=== PATIENT | female | born 1945 | race Caucasian/White ===

== ENCOUNTER 2016-08-22 08:35 | Day surgery (SDC) | payer MEDICARE, OTHER ==
[2016-08-22] MEDS ORDERED: LACTATED RINGERS 1,000 ML IV ONE ×2 (08:42→12:30)
[2016-08-22] MEDS ORDERED: fentaNYL 250 MCG/5 ML VIAL IVP ONE (09:50)
[2016-08-22] MEDS ORDERED: MIDAZOLAM 2 MG/2 ML VIAL IVP ONE (09:50)
[2016-08-22] MEDS ORDERED: ONDANSETRON 4 MG/2 ML VIAL ONE ×2 (11:02→11:33)
[2016-08-22] MEDS: METOCLOPRAMIDE 10 MG/2 ML VIAL IVP ONE ×2 (11:55→12:14)
== END 2016-08-22 08:36 | disposition home or self-care (01) ==
PROC: 0DJD8ZZ Inspection of Lower Intestinal Tract, Via Natural or Artificial Opening Endoscopic (ICD-10-PCS; principal; 2016-08-22 09:45)
DX: Z86.010 Personal history of colon polyps (principal); K59.00 Constipation, unspecified; K64.4 Residual hemorrhoidal skin tags; Z80.0 Family history of malignant neoplasm of digestive organs; E66.9 Obesity, unspecified; Z80.3 Family history of malignant neoplasm of breast; Z68.36 Body mass index [BMI] 36.0-36.9, adult
CPT/HCPCS: 45378; J3010; J7120

== ENCOUNTER 2016-12-09 10:19 | Outpatient (CLI) | payer MEDICARE, OTHER ==
[2016-12-09 13:14] LABS: CHOL/HDL RATIO 3.1 (<4.4); CHOLESTEROL 199 mg/dL; HDL CHOLESTEROL 64 mg/dL; LDL/HDL RATIO 1.8 (<4.4); TRIGLYCERIDES 111 mg/dL; VLDL CHOLESTEROL 22 mg/dL
== END 2016-12-09 10:20 | disposition home or self-care (01) ==
LOC: LAB.R 10:19
PROVIDERS: ATTEND Internal Medicine
DX: E78.2 Mixed hyperlipidemia (principal); R55 Syncope and collapse; R30.0 Dysuria
CPT/HCPCS: 80061; 84443; 87086

== ENCOUNTER 2016-12-16 10:44 | Outpatient (CLI) | payer MEDICARE, OTHER ==
--- NOTE | 2016-12-17 17:43 | Mammography Report ---
DIGITAL SCREENING MAMMOGRAM: 12/16/2016 CLINICAL INDICATION: A 71-year-old with family history of breast cancer for screening. COMPARISON: 12/2014, 06/2013, 11/2010, 03/2007. TECHNIQUE: Routine CC and MLO projections were obtained of the breasts. FINDINGS: The breasts again demonstrate heterogeneously dense fibroglandular parenchyma bilaterally. A few punctate, typically benign calcifications are present. There is a possible developing densit y in the left inner central breast. Further evaluation with spot compression views and possible ultr asound is recommended. No mammographically suspicious findings are appreciated in the right breast. IMPRESSION: INCOMPLETE EXAMINATION. RECOMMENDATION: Additional evaluation of the left breast as above. BI-RADS category 0, incomplete. STANDARD QUALIFYING STATEMENTS 1. This examination was reviewed with the aid of Computer-Aided Detection (CAD). 2. A negative or benign imaging report should not delay biopsy if clinically suspicious findings are present. Consider surgical consultation if warranted. More than 5% of cancers are not identified by i maging. 3. Dense breasts may obscure an underlying neoplasm. JOB #: [id number] EXT JOB #:[id number]
== END 2016-12-16 10:45 | disposition home or self-care (01) ==
LOC: DI.S 10:44
PROVIDERS: ATTEND Internal Medicine
DX: Z12.31 Encounter for screening mammogram for malignant neoplasm of breast (principal); R92.8 Other abnormal and inconclusive findings on diagnostic imaging of breast
CPT/HCPCS: 77067

== ENCOUNTER 2017-01-09 08:37 | Outpatient (CLI) | payer MEDICARE, OTHER ==
--- NOTE | 2017-01-09 14:19 | Mammography Report ---
DIGITAL DIAGNOSTIC LEFT MAMMOGRAM: 01/09/2017 CLINICAL INDICATION: Nodule inner left breast on screening. TECHNIQUE: Left true lateral and spot compression views. COMPARISON: 12/16/2016, 12/21/2014, 06/09/2013, 11/09/2010, 03/17/2007. FINDINGS: The left breast again demonstrates heterogeneously dense fibroglandular parenchyma. There is a circumscribed nodule at the 9 o'clock position, approximately 3 cm from the nipple. Please also refer to left breast ultrasound of the same day. IMPRESSION: BENIGN FINDINGS, WITH A SIMPLE CYST ON ULTRASOUND ACCOUNTING FOR THE MAMMOGRAPHIC ABNORM ALITY. RECOMMENDATION: ROUTINE ANNUAL SCREENING UNLESS OTHERWISE CLINICALLY INDICATED. BIRADS CATEGORY 2-BENIGN FINDINGS. STANDARD QUALIFYING STATEMENTS 1. This examination was reviewed with the aid of Computer-Aided Detection (CAD). 2. A negative or benign imaging report should not delay biopsy if clinically suspicious findings are present. Consider surgical consultation if warranted. More than 5% of cancers are not identified by i maging. 3. Dense breasts may obscure an underlying neoplasm. JOB #: [id number] EXT JOB #:[id number]
--- NOTE | 2017-01-10 08:40 | Ultrasound Report ---
ULTRASOUND OF LEFT INNER BREAST: 01/09/2017 CLINICAL INDICATION: Persistent nodule on mammogram. TECHNIQUE: Real-time scanning was performed with technology sales representative static images obtained. FINDINGS: Ultrasound of the inner left breast was performed. At the 9 o'clock position, 3 cm from the nipple, there is an 1.0 x 1.0 x 0.9 cm simple cyst, accounti ng for the mammographic abnormality. No sonographically suspicious findings are identified. IMPRESSION: SIMPLE CYST, ACCOUNTING FOR THE MAMMOGRAPHIC ABNORMALITY. RECOMMENDATION: ROUTINE ANNUAL SCREENING UNLESS OTHERWISE CLINICALLY INDICATED. BIRADS CATEGORY 2-BENIGN FINDINGS. JOB #: [id number] EXT JOB #:[id number]
== END 2017-01-09 08:38 | disposition home or self-care (01) ==
LOC: DI 08:37
PROVIDERS: ATTEND Internal Medicine
DX: N60.02 Solitary cyst of left breast (principal)
CPT/HCPCS: 76642; G0206

== ENCOUNTER 2019-06-08 11:30 | Outpatient (CLI) | payer MEDICARE, OTHER ==
--- NOTE | 2019-06-08 15:01 | Mammography Report ---
Reason: SCREENING MAMMO Procedure Date: 06/08/2019 Accession Number: [id number] / [id number] Procedure: MGS - Screening Mammo Dig Bilat CPT Code: Final Report FULL RESULT: EXAM: Screening Mammo Dig Bilat DATE: 06/08/2019 11:59 AM CLINICAL HISTORY: The patient is an asymptomatic 74-year-old female presenting for screening mammography. No personal nor family history of breast cancer. TECHNIQUE: (B) - Bilateral CC and MLO views were obtained. COMPARISON: 12/21/2014, 06/09/2013, 11/09/2010 PARENCHYMAL PATTERN: (D) - The breasts demonstrate heterogeneously dense fibroglandular parenchyma bilaterally. FINDINGS: The pattern of nodular asymmetry is stable given positional variation. Waxing and waning cysts again noted. There are no suspicious masses, calcifications, or areas of distortion. IMPRESSION: Benign findings. BI-RADS category 2. RECOMMENDATION: (ANNUAL) - Recommend routine annual screening mammography. BI-RADS CATEGORY: (2) - Benign Findings. STANDARD QUALIFYING STATEMENTS: 1. This examination was reviewed with the aid of Computer-Aided Detection (CAD). 2. A negative or benign imaging report should not preclude biopsy if clinically suspicious findings are present. 3. Dense breasts may obscure an underlying neoplasm.
== END 2019-06-08 11:31 | disposition home or self-care (01) ==
LOC: DI.S 11:30
DX: Z12.31 Encounter for screening mammogram for malignant neoplasm of breast (principal)
CPT/HCPCS: 77067

== ENCOUNTER 2019-06-14 16:55 | Outpatient (CLI) | payer MEDICARE, OTHER ==
[2019-06-14 17:26] LABS: BASOPHILS % (AUTO) 0.4 %; EOSINOPHILS # (AUTO) 0.3 10^3/uL (0.0-0.7); EOSINOPHILS % (AUTO) 3.4 %; HGB - HEMOGLOBIN 13.5 g/dL (12.0-16.0); LYMPHOCYTES # (AUTO) 2.3 10^3/uL (1.5-3.5); LYMPHOCYTES % (AUTO) 29.8 %; MEAN CORPUSCULAR HEMOGLOBIN 29.2 pg (27.0-31.0); MEAN CORPUSCULAR HGB CONC 31.7 g/dL (32.0-36.0); MEAN PLATELET VOLUME 9.7 fL (7.9-10.8); MONOCYTES # (AUTO) 0.8 10^3/uL (0.0-1.0); MONOCYTES % (AUTO) 9.6 %; NEUTROPHILS # (AUTO) 4.4 10^3/uL (1.5-6.6); NEUTROPHILS % (AUTO) 56.4 %; PLT - PLATELET COUNT 243 10^3/uL (130-450); RED BLOOD COUNT 4.63 10^6/uL (4.20-5.40); RED CELL DISTRIBUTION WIDTH 13.9 % (12.0-15.0); WHITE BLOOD COUNT 7.9 x10^3/uL (4.8-10.8)
[2019-06-14 18:10] LABS: ALBUMIN/GLOBULIN RATIO 1.2 (1.0-2.2); ALKALINE PHOSPHATASE 61 IU/L (42-121); ALT ALANINE AMINOTRANSFERASE 20 IU/L (10-60); AST ASPARTATE AMINOTRANSFERASE 21 IU/L (10-42); BILIRUBIN,TOTAL 0.9 mg/dL (0.2-1.0); BUN - BLOOD UREA NITROGEN 15 mg/dL (6-20); CARBON DIOXIDE - CO2 27 mmol/L (21-32); CHLORIDE 106 mmol/L (101-111); CHOL/HDL RATIO 3.9 (<4.4); CHOLESTEROL 233 mg/dL; CREATININE 0.8 mg/dL (0.4-1.0); GFR - MDRD 70 (>89); GLUCOSE 100 mg/dL (70-100); HDL CHOLESTEROL 60 mg/dL; LDL CHOLESTEROL,CALCULATED 151 mg/dL; LDL/HDL RATIO 2.5 (<4.4); SODIUM 140 mmol/L (135-145); TOTAL PROTEIN 7.4 g/dL (6.7-8.2); VLDL CHOLESTEROL 22 mg/dL
== END 2019-06-14 16:56 | disposition home or self-care (01) ==
LOC: LAB 16:55
PROVIDERS: ATTEND Nurse Practitioner
DX: K21.9 Gastro-esophageal reflux disease without esophagitis (principal); E78.5 Hyperlipidemia, unspecified; E66.9 Obesity, unspecified
CPT/HCPCS: 36415; 80053; 80061; 83721; 84443; 85025

== ENCOUNTER 2019-06-28 09:47 | Day surgery (SDC) | payer MEDICARE, OTHER ==
[~2019-06-28 09:47] MED LIST: LIDO GARGLE 30 ML BOTTLE ONE; LIDO GARGLE 30 ML BOTTLE PO ONE
[2019-06-28] MEDS ORDERED: MIDAZOLAM 2 MG/2 ML VIAL IVP ONE (09:48)
[2019-06-28] MEDS ORDERED: fentaNYL 100 MCG/2 ML VIAL IVP ONE (09:48)
[2019-06-28] MEDS ORDERED: LACTATED RINGERS 1,000 ML IV ONE (09:51)
[2019-06-28 12:41] VITALS: BP 146/80
== END 2019-06-28 09:48 | disposition home or self-care (01) ==
LOC: SDS 09:47
PROVIDERS: ATTEND Internal Medicine Gastroenterology
PROC: 0D748ZZ Dilation of Esophagogastric Junction, Via Natural or Artificial Opening Endoscopic (ICD-10-PCS; 2019-06-28)
PROC: 0DB48ZX Excision of Esophagogastric Junction, Via Natural or Artificial Opening Endoscopic, Diagnostic (ICD-10-PCS; principal; 2019-06-28 11:00)
DX: K21.0 Gastro-esophageal reflux disease with esophagitis (principal); R13.10 Dysphagia, unspecified; K22.2 Esophageal obstruction; K44.9 Diaphragmatic hernia without obstruction or gangrene; E66.9 Obesity, unspecified; Z68.36 Body mass index [BMI] 36.0-36.9, adult
CPT/HCPCS: 43239; 43249; A9270; J7120

== ENCOUNTER 2020-06-23 08:00 | Outpatient (CLI) | payer MEDICARE, OTHER ==
--- NOTE | 2020-06-23 16:21 | XRAY Report ---
PROCEDURE: Hand 3 View LT INDICATIONS: LEFT HAND JOINT PAIN TECHNIQUE: 3 views of the hand(s) acquired. COMPARISON: None FINDINGS: Bones: No fractures or dislocations. No suspicious bony lesions. Mild first CMC joint and first th rough fifth DIP joint osteoarthritis. No osseous erosive changes. Soft tissues: No suspicious soft tissue calcifications. IMPRESSION: Osteoarthritis. Reviewed by: Lorena Luna MD, PhD on 06/23/2020 4:19 PM [facility] Approved by: Lorena Luna MD, PhD on 06/23/2020 4:19 PM [facility] Station ID: [id number]
== END 2020-06-23 23:59 ==
LOC: DI.S 08:00
PROVIDERS: ATTEND Emergency Medicine
DX: M19.042 Primary osteoarthritis, left hand (principal)

== ENCOUNTER 2020-08-01 08:29 | Outpatient (CLI) | payer MEDICARE, OTHER ==
--- NOTE | 2020-08-01 13:01 | DEXA Report ---
PROCEDURE: Dexa Spine and/or Hip INDICATIONS: POST MENOPAUSAL TECHNIQUE: Dual energy x-ray absorptiometry (DXA) was performed on a [employer] System. Regions measur ed are the AP Spine, femoral neck, and if needed forearm. COMPARISON: None. FINDINGS: Lumbar Spine: Bone Mineral Density 1.087 g/cm/cm,T score -0.8, normal Left Hip: Bone Mineral Density 0.968 g/cm/cm,T score -0.3, normal Left Femoral Neck: Bone Mineral Density 0.843 g/cm/cm, T score -1.4, minimal osteopenia (T score greater or equal to -1.0: NORMAL) (T score from -1.1 to -2.4: OSTEOPENIA) (T score less than or equal to -2.5 to: OSTEOPOROSIS) Impression: Minimal osteopenia in the left femoral neck. Patients with diagnosis of osteoporosis or osteopenia should have regular bone mineral density assess ment. For those eligible for Medicare, routine testing is allowed once every 2 years. Testing frequ ency can be increased for patients who have rapidly progressing disease or for those who are receivin g medical therapy to restore bone mass. Reviewed by: Maya Sarmiento MD on 08/01/2020 1:00 PM PST Approved by: Maya Sarmiento MD on 08/01/2020 1:00 PM PST Station ID: [id number]
== END 2020-08-01 08:30 | disposition home or self-care (01) ==
LOC: DI 08:29
PROVIDERS: ATTEND Registered Nurse
DX: M85.88 Other specified disorders of bone density and structure, other site (principal)

== ENCOUNTER 2021-01-26 09:36 | Outpatient (CLI) | payer MEDICARE, OTHER ==
[2021-01-26 14:53] LABS: BASOPHILS # (AUTO) 0.1 10^3/uL (0.0-0.1); BASOPHILS % (AUTO) 0.6 %; EOSINOPHILS # (AUTO) 0.3 10^3/uL (0.0-0.7); EOSINOPHILS % (AUTO) 3.9 %; HCT - HEMATOCRIT 45.3 % (37.0-47.0); HGB - HEMOGLOBIN 13.9 g/dL (12.0-16.0); LYMPHOCYTES # (AUTO) 2.2 10^3/uL (1.5-3.5); LYMPHOCYTES % (AUTO) 26.8 %; MEAN CORPUSCULAR HEMOGLOBIN 28.4 pg (27.0-31.0); MEAN CORPUSCULAR HGB CONC 30.7 g/dL (32.0-36.0); MEAN CORPUSCULAR VOLUME 92.4 fL (81.0-99.0); MEAN PLATELET VOLUME 11.6 fL (7.9-10.8); MONOCYTES # (AUTO) 0.8 10^3/uL (0.0-1.0); MONOCYTES % (AUTO) 9.6 %; NEUTROPHILS # (AUTO) 4.7 10^3/uL (1.5-6.6); NEUTROPHILS % (AUTO) 58.7 %; PLT - PLATELET COUNT 275 10^3/uL (130-450); RED CELL DISTRIBUTION WIDTH 14.4 % (12.0-15.0)
[2021-01-26 15:13] LABS: ALBUMIN/GLOBULIN RATIO 1.1 (1.0-2.2); ALKALINE PHOSPHATASE 79 IU/L (42-121); ALT ALANINE AMINOTRANSFERASE 21 IU/L (10-60); AST ASPARTATE AMINOTRANSFERASE 21 IU/L (10-42); BILIRUBIN,TOTAL 0.8 mg/dL (0.2-1.0); BUN - BLOOD UREA NITROGEN 19 mg/dL (6-20); CALCIUM 9.5 mg/dL (8.5-10.3); CARBON DIOXIDE - CO2 26 mmol/L (21-32); CHLORIDE 103 mmol/L (101-111); CHOL/HDL RATIO 3.8 (<4.4); CHOLESTEROL 219 mg/dL; CREATININE 0.8 mg/dL (0.4-1.0); GFR - MDRD 70 (>89); GLUCOSE 105 mg/dL (70-100); HDL CHOLESTEROL 58 mg/dL; LDL CHOLESTEROL,CALCULATED 124 mg/dL; LDL/HDL RATIO 2.1 (<4.4); POTASSIUM 4.7 mmol/L (3.5-5.0); SODIUM 139 mmol/L (135-145); TOTAL PROTEIN 7.6 g/dL (6.7-8.2); TRIGLYCERIDES 186 mg/dL; VLDL CHOLESTEROL 37 mg/dL
[2021-01-26 15:19] LABS: THYROID STIMULATING HORMONE 3.39 uIU/mL (0.34-5.60)
== END 2021-01-26 09:37 | disposition home or self-care (01) ==
LOC: LAB.S 09:36
PROVIDERS: ATTEND Registered Nurse
DX: R42 Dizziness and giddiness (principal); R03.0 Elevated blood-pressure reading, without diagnosis of hypertension; E78.5 Hyperlipidemia, unspecified
CPT/HCPCS: 36415; 80053; 80061; 83721; 84443; 85025

== ENCOUNTER 2021-06-01 08:00 | Outpatient (CLI) | payer MEDICARE, OTHER ==
--- NOTE | 2021-06-01 09:29 | XRAY Report ---
PROCEDURE: Ankle 3 View RT INDICATIONS: ANKLE PAIN, RIGHT TECHNIQUE: 3 views of the ankle were acquired. COMPARISON: None FINDINGS: Bones: No fractures or dislocations. Ankle mortise is normally aligned. No suspicious bony lesions . Scattered subchondral sclerosis and spurring. Tibiotalar joint space grossly preserved. Large pos terior calcaneal spur. Small plantar calcaneal spur Soft tissues: BB-like density projecting in the region of the anterolateral soft tissues. IMPRESSION: BB like density projects in the anterolateral soft tissues. Posterior and plantar calcaneal spurring. Reviewed by: Jorden Chavira MD on 06/01/2021 9:27 AM PST Approved by: Jorden Chavira MD on 06/01/2021 9:27 AM PST Station ID: [id number]
== END 2021-06-01 23:59 | disposition home or self-care (01) ==
LOC: DI.S 08:00
PROVIDERS: ATTEND Emergency Medicine
DX: M77.31 Calcaneal spur, right foot (principal); R22.41 Localized swelling, mass and lump, right lower limb

== ENCOUNTER 2021-06-26 17:35 | Emergency (ER) | payer MEDICARE, OTHER ==
[2021-06-26] MEDS ORDERED: ONDANSETRON ODT 4 MG TABLET TL STA (17:52)
[2021-06-26] MEDS ORDERED: ONDANSETRON 4 MG/2 ML VIAL IVP STA (18:05)
[2021-06-26] MEDS ORDERED: SODIUM CHLORIDE 0.9% 1,000 ML IV STA (18:05)
[2021-06-26] MEDS ORDERED: KETOROLAC 15 MG/ML VIAL IVP STA (18:06)
[2021-06-26] MEDS ORDERED: LOPERAMIDE 2 MG CAPSULE PO STA (18:06)
--- NOTE | 2021-06-26 18:06 | ED Physician Documentation ---
PD HPI ABD PAIN - Stated complaint Stated Complaint: DIZZY,VOMITING,DIARRHEA - Chief complaint Chief Complaint: Abd Pain - History obtained from History obtained from: Patient (76-year-old woman with history of GERD but otherwise very healthy became sick last night with vomiting and diarrhea as well as some upper abdominal pain. No fevers. It sounds like her daughter and grandson were recently ill with a similar illness.) Review of Systems Constitutional: denies: Fever, Chills Eyes: reports: Reviewed and negative Throat: reports: Reviewed and negative Cardiac: reports: Reviewed and negative Respiratory: reports: Reviewed and negative PD PAST MEDICAL HISTORY - Past Medical History Cardiovascular: High cholesterol Respiratory: None Endocrine/Autoimmune: None GI: GERD, Colon polyps : None HEENT: None Psych: None Musculoskeletal: None Derm: None - Past Surgical History HEENT: Tonsil/Adenoidectomy - Present Medications Home Medications: Ambulatory Orders Medication Instructions Recorded Confirmed Omeprazole 20 mg PO DAILY #90 tab.rap.dr 06/28/19 Loperamide [Imodium] 2 mg PO Q6H PRN #10 cap 06/26/21 Ondansetron Odt [Zofran] 4 mg TL Q6H PRN #10 tablet 06/26/21 - Allergies Allergies/Adverse Reactions: Allergies Allergy/AdvReac Type Severity Reaction Status Date / Time No Known Drug Allergies Allergy Verified 06/26/21 17:56 PD ED PE NORMAL - Vitals Vital signs reviewed: Yes - General General: Alert and oriented X 3, Other (She appears uncomfortable and nauseous) - HEENT HEENT: PERRL, EOMI, Pharynx benign - Neck Neck: Supple, no meningeal sign - Cardiac Cardiac: RRR, No murmur - Respiratory Respiratory: No respiratory distress, Clear bilaterally - Abdomen Abdomen: Normal bowel sounds, Soft, Non tender - Back Back: No CVA TTP, No spinal TTP - Derm Derm: Normal color, Warm and dry - Extremities Extremities: No edema, No calf tenderness / cord - Neuro Neuro: Alert and oriented X 3, Normal speech Results - Vitals Vitals: Vital Signs - 24 hr 06/26/21 06/26/21 06/26/21 17:49 19:01 20:00 Temperature 36.6 C Heart Rate 104 H 88 83 Respiratory 15 24 21 Rate Blood Pressure 116/69 128/55 L 141/53 H O2 Saturation 99 97 96 06/26/21 21:00 Temperature Heart Rate 86 Respiratory 20 Rate Blood Pressure 130/65 O2 Saturation 94 Oxygen O2 Source Room air - Labs Labs: Laboratory Tests 06/26/21 06/26/21 18:16 18:16 WBC 8.2 RBC 4.71 Hgb 13.5 Hct 41.6 MCV 88.3 MCH 28.7 MCHC 32.5 RDW 14.9 Plt Count 217 MPV 10.7 Neut # (Auto) 6.6 Lymph # (Auto) 0.8 L Nuckolls # (Auto) 0.7 Eos # (Auto) 0.1 Baso # (Auto) 0.0 Absolute Nucleated RBC 0.00 Nucleated RBC % 0.0 Sodium 135 Potassium 3.7 Chloride 101 Carbon Dioxide 24 Anion Gap 10.0 BUN 20 Creatinine 0.8 Estimated GFR (MDRD) 69 L Glucose 122 H Calcium 8.5 Total Bilirubin 0.5 AST 23 ALT 20 Alkaline Phosphatase 66 Total Protein 7.3 Albumin 3.7 Globulin 3.6 Albumin/Globulin Ratio 1.0 Lipase 19 L PD MEDICAL DECISION MAKING - ED course ED course: 76-year-old woman with a syndrome most compatible with gastroenteritis. Benign examination. Will check labs and give IV fluids, antiemetics, Toradol and Imodium. Care to Dr Cornell at shift change pending reeval. Departure - Departure Disposition: 01 Home, Self Care Clinical Impression: Nausea vomiting and diarrhea Condition: Stable Instructions: ED Nausea Vomiting Follow-Up: Claudia Cespedes ARNP [Primary Care Provider] - Prescriptions: Loperamide [Imodium] 2 mg PO Q6H PRN #10 cap PRN Reason: Diarrhea Ondansetron Odt [Zofran] 4 mg TL Q6H PRN #10 tablet PRN Reason: Nausea / Vomiting Comments: Small frequent fluids and just little bits of bland food this evening. Try to progressed into more regular food tomorrow. Use the ondansetron every 4-6 hours if needed for nausea. Hopefully be improving into tomorrow on the next day. Should you need more medicine for nausea or diarrhea, I did transmit prescriptions to [facility] in [place]. Return if worsening symptoms despite medications or if not better over the next few days. Discharge Date/Time: 06/26/21 21:48
[2021-06-26 18:26] LABS: BASOPHILS % (AUTO) 0.1 %; EOSINOPHILS # (AUTO) 0.1 10^3/uL (0.0-0.7); EOSINOPHILS % (AUTO) 0.7 %; HCT - HEMATOCRIT 41.6 % (37.0-47.0); HGB - HEMOGLOBIN 13.5 g/dL (12.0-16.0); LYMPHOCYTES # (AUTO) 0.8 10^3/uL (1.5-3.5); MEAN CORPUSCULAR HEMOGLOBIN 28.7 pg (27.0-31.0); MEAN CORPUSCULAR HGB CONC 32.5 g/dL (32.0-36.0); MEAN CORPUSCULAR VOLUME 88.3 fL (81.0-99.0); MEAN PLATELET VOLUME 10.7 fL (7.9-10.8); MONOCYTES # (AUTO) 0.7 10^3/uL (0.0-1.0); MONOCYTES % (AUTO) 7.9 %; NEUTROPHILS # (AUTO) 6.6 10^3/uL (1.5-6.6); NEUTROPHILS % (AUTO) 81.1 %; PLT - PLATELET COUNT 217 10^3/uL (130-450); RED BLOOD COUNT 4.71 10^6/uL (4.20-5.40); RED CELL DISTRIBUTION WIDTH 14.9 % (12.0-15.0); WHITE BLOOD COUNT 8.2 x10^3/uL (4.8-10.8)
[2021-06-26 18:37] LABS: ALBUMIN 3.7 g/dL (3.2-5.5); BILIRUBIN,TOTAL 0.5 mg/dL (0.2-1.0); CALCIUM 8.5 mg/dL (8.5-10.3); CREATININE 0.8 mg/dL (0.4-1.0); POTASSIUM 3.7 mmol/L (3.5-5.0); TOTAL PROTEIN 7.3 g/dL (6.7-8.2)
[2021-06-26] MEDS ORDERED: ONDANSETRON ODT 4 MG Prepack 2 TL PRN (20:20)
[2021-06-26] MEDS ORDERED: DROPERIDOL 5 MG/2 ML VIAL IVP STA (20:20)
[2021-06-26] MEDS ORDERED: MORPHINE 2 MG/ML CARPUJECT IVP STA (20:22)
[2021-06-26 21:15] VITALS: BP 130/65
--- NOTE | 2021-06-26 21:36 | ED Physician Documentation ---
ED Addendum - Addendum Addendum: 06/26/21 21:35At change of shift the patient was still having some mid abdominal crampy pains. No real tenderness to palpation and no guarding nor rebound. She was still slightly nauseated. She is given further medications with the Inapsine, 2 mg of morphine and some more fluids. Recheck an hour later and she was able to tolerate some fluids and denied any abdominal discomfort. She did feel able to go home. Diagnoses: 1. Nausea vomiting and diarrhea acutely 2. Dehydration 3. Crampy mild abdominal pain Disposition: Patient is discharged home in stable condition.
== END 2021-06-26 21:48 | disposition home or self-care (01) ==
LOC: ED 17:35
DX: R11.2 Nausea with vomiting, unspecified (principal); R19.7 Diarrhea, unspecified; E86.0 Dehydration
CPT/HCPCS: 36415; 80053; 83690; 85025; 96361; 96374; 96375; 99283; 99285; A9270

== ENCOUNTER 2021-08-28 14:57 | Outpatient (CLI) | payer MEDICARE, OTHER ==
--- NOTE | 2021-08-29 07:04 | Mammography Report ---
BILATERAL DIGITAL SCREENING MAMMOGRAM 3D/2D WITH EXAGGERATED CC: 08/28/2021 CLINICAL: Routine screening. Family history of breast cancer. Comparison is made to exams dated: 06/08/2019 mammogram, 01/09/2017 mammogram, 12/21/2016 mammogram, 12/05 mammogram, and 06/09/2013 mammogram - [facility]. The tissue of both breasts is predominantly fatty. No significant masses, calcifications, or other findings are seen in either breast. There has been no significant interval change. IMPRESSION: NEGATIVE There is no mammographic evidence of malignancy. A 1 year screening mammogram is recommended. This exam was interpreted at Station ID: [id number]. NOTE: For mammograms, a report in lay terms will be sent to the patient. Approximately 15% of breast malignancies will not be visualized mammographically. In the management of a palpable breast mass, a negative mammogram must not discourage biopsy of a clinically suspicious lesion. Electronically Signed By: Elijah Curry acr/penrad:08/28/2021 16:46:53 ACR BI-RADS Category 1: Negative 3341F PARENCHYMAL PATTERN: (F) - The breast(s) demonstrate(s) diffuse fatty replacement. BI-RADS CATEGORY: (1) - 1 RECOMMENDATION: (ANNUAL) - Recommend routine annual screening mammography. [id number] 1 year screening LATERALITY: (B)
== END 2021-08-28 14:58 | disposition home or self-care (01) ==
LOC: DI.S 14:57
DX: Z12.31 Encounter for screening mammogram for malignant neoplasm of breast (principal); Z80.3 Family history of malignant neoplasm of breast

== ENCOUNTER 2022-01-03 08:00 | Outpatient (CLI) | payer MEDICARE, OTHER ==
--- NOTE | 2022-01-03 09:21 | XRAY Report ---
PROCEDURE: Lumbar Spine 2 View INDICATIONS: LOW BACK PAIN TECHNIQUE: 2 views of the lumbar spine were acquired. COMPARISON: None. FINDINGS: Bones: 5 [id number] vertebrae are present. There are multilevel degenerative changes with ante rior osteophytes at multiple levels. L5-S1 has facet arthrosis with disc space narrowing and endplate sclerosis. The remaining levels also have facet arthrosis. There is normal bony alignment. No verte bral body compression fractures. No suspicious bony lesions. Sacroiliac joints are normal. Soft tissues: Overlying bowel gas pattern is normal. No suspicious soft tissue calcifications. IMPRESSION: 1. 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 2. Disc space narrowing at L5-S1 consistent with disc disease. Reviewed by: Elijah Curry on 01/03/2022 9:20 AM PDT Approved by: Elijah Curry on 01/03/2022 9:20 AM [facility] Station ID: [id number]
== END 2022-01-03 23:59 | disposition home or self-care (01) ==
LOC: DI.S 08:00
PROVIDERS: ATTEND Registered Nurse
DX: M47.816 Spondylosis without myelopathy or radiculopathy, lumbar region (principal)

== ENCOUNTER 2022-08-20 07:58 | Outpatient (CLI) | payer MEDICARE, OTHER ==
--- NOTE | 2022-08-20 12:23 | Mammography Report ---
BILATERAL DIGITAL SCREENING MAMMOGRAM 3D/2D: 08/20/2022 CLINICAL: Routine screening. Family history of breast cancer. Comparison is made to exams dated: 08/28/2021 mammogram, 06/08/2019 mammogram, 01/09/2017 ultrasound, 01/09/2017 mammogram, 12/21/2016 mammogram, and 12/21/2014 ultrasound - Located within [facility]. Both breasts are heterogeneously dense, which may obscure small masses (category c / 51-75% glandular tissue). No significant masses, calcifications, or other findings are seen in either breast. There has been no significant interval change. IMPRESSION: NEGATIVE There is no mammographic evidence of malignancy. A 1 year screening mammogram is recommended. Based on the Tyrer Cuzick model (a risk assessment model) the patients lifetime risk is 8.9% and her 10 year risk is 0.0%. According to the ACR, ACS, and NCCN guidelines, an annual breast MRI exam wilson g with mammogram is recommended if the patients lifetime risk is 20% or greater. This exam was interpreted at Station ID: [id number]. NOTE: For mammograms, a report in lay terms will be sent to the patient. Approximately 15% of breast malignancies will not be visualized mammographically. In the management of a palpable breast mass, a negative mammogram must not discourage biopsy of a clinically suspicious lesion. Electronically Signed By: Kody Mariano M.D., jr/shine:08/20/2022 08:46:01 ACR BI-RADS Category 1: Negative 3341F PARENCHYMAL PATTERN: (D) - The breast(s) demonstrate(s) heterogeneously dense fibroglandular caleb mathews. BI-RADS CATEGORY: (1) - 1 RECOMMENDATION: (ANNUAL) - Recommend routine annual screening mammography. [id number] 1 year screening LATERALITY: (B)
== END 2022-08-20 07:59 | disposition home or self-care (01) ==
LOC: DI.S 07:58
PROVIDERS: ATTEND Registered Nurse
DX: Z12.31 Encounter for screening mammogram for malignant neoplasm of breast (principal); Z80.3 Family history of malignant neoplasm of breast

== ENCOUNTER 2022-09-26 07:30 | Outpatient (CLI) | payer MEDICARE, OTHER ==
[2022-09-26 14:31] LABS: BASOPHILS # (AUTO) 0.1 10^3/uL (0.0-0.1); BASOPHILS % (AUTO) 0.7 %; EOSINOPHILS # (AUTO) 0.3 10^3/uL (0.0-0.7); EOSINOPHILS % (AUTO) 3.9 %; HCT - HEMATOCRIT 41.9 % (37.0-47.0); HGB - HEMOGLOBIN 13.1 g/dL (12.0-16.0); LYMPHOCYTES # (AUTO) 3.3 10^3/uL (1.5-3.5); LYMPHOCYTES % (AUTO) 39.4 %; MEAN CORPUSCULAR HEMOGLOBIN 28.1 pg (27.0-31.0); MEAN CORPUSCULAR HGB CONC 31.3 g/dL (32.0-36.0); MEAN CORPUSCULAR VOLUME 89.9 fL (81.0-99.0); MEAN PLATELET VOLUME 10.7 fL (7.9-10.8); MONOCYTES # (AUTO) 0.7 10^3/uL (0.0-1.0); MONOCYTES % (AUTO) 8.5 %; NEUTROPHILS % (AUTO) 47.3 %; PLT - PLATELET COUNT 269 10^3/uL (130-450); RED BLOOD COUNT 4.66 10^6/uL (4.20-5.40); RED CELL DISTRIBUTION WIDTH 15.5 % (12.0-15.0); WHITE BLOOD COUNT 8.4 x10^3/uL (4.8-10.8)
[2022-09-26 14:55] LABS: ALBUMIN 3.6 g/dL (3.2-5.5); ALBUMIN/GLOBULIN RATIO 1.1 (1.0-2.2); ALKALINE PHOSPHATASE 69 IU/L (42-121); ALT ALANINE AMINOTRANSFERASE 17 IU/L (10-60); AST ASPARTATE AMINOTRANSFERASE 20 IU/L (10-42); BILIRUBIN,TOTAL 0.6 mg/dL (0.2-1.0); BUN - BLOOD UREA NITROGEN 25 mg/dL (6-20); CALCIUM 8.7 mg/dL (8.5-10.3); CARBON DIOXIDE - CO2 25 mmol/L (21-32); CHLORIDE 110 mmol/L (101-111); CHOL/HDL RATIO 3.9 (<4.4); CHOLESTEROL 208 mg/dL; CREATININE 0.8 mg/dL (0.4-1.0); GFR - MDRD 69 (>89); GLUCOSE 115 mg/dL (70-100); HDL CHOLESTEROL 53 mg/dL; LDL CHOLESTEROL,CALCULATED 129 mg/dL; LDL/HDL RATIO 2.4 (<4.4); POTASSIUM 4.2 mmol/L (3.5-5.0); SODIUM 140 mmol/L (135-145); TOTAL PROTEIN 6.9 g/dL (6.7-8.2); TRIGLYCERIDES 132 mg/dL; VLDL CHOLESTEROL 26 mg/dL
[2022-09-26 15:09] LABS: THYROID STIMULATING HORMONE 6.06 uIU/mL (0.34-5.60)
[2022-09-26 15:42] LABS: FREE T4 (FREE THYROXINE) 0.8 ng/dL (0.58-1.64)
== END 2022-09-26 07:31 | disposition home or self-care (01) ==
LOC: LAB.S 07:30
PROVIDERS: ATTEND Registered Nurse
DX: E78.5 Hyperlipidemia, unspecified (principal); Z79.899 Other long term (current) drug therapy; Z13.29 Encounter for screening for other suspected endocrine disorder
CPT/HCPCS: 36415; 80053; 80061; 83721; 84439; 84443; 85025

== ENCOUNTER 2022-09-28 09:13 | Outpatient (CLI) | payer MEDICARE, OTHER ==
--- NOTE | 2022-09-28 11:07 | XRAY Report ---
PROCEDURE: Knee 2 View BILAT INDICATIONS: KNEE JOINT PAIN >3 MONTHS BILATERAL TECHNIQUE: 2 views of each knee were acquired. COMPARISON: None. FINDINGS: Bones: No fractures or dislocations. No suspicious bony lesions. The knee joint spaces are relatively well-preserved. Note is made of enthesophytes along the superior aspects of both patellas. Soft tissues: No joint effusion. No suspicious soft tissue calcifications. IMPRESSION: Plain film study within normal limits for age. If it would be helpful for clinical management decision making, please consider a dedicated, schedule d knee MRI for further evaluation (assuming that there is no contraindication). Reviewed by: David Ruiz MD on 09/28/2022 10:06 AM [facility] Approved by: David Ruiz MD on 09/28/2022 10:06 AM [facility] Station ID: [id number]
== END 2022-09-28 09:14 | disposition home or self-care (01) ==
LOC: DI.S 09:13
PROVIDERS: ATTEND Registered Nurse
DX: M25.562 Pain in left knee (principal); M25.561 Pain in right knee

== ENCOUNTER 2023-01-03 09:35 | Emergency (ER) | payer MEDICARE, OTHER ==
--- NOTE | 2023-01-03 10:07 | ED Physician Documentation ---
PD HPI SYNCOPE - Stated complaint Stated Complaint: DIZZINESS,DIARRHEA - Chief complaint Chief Complaint: Neuro - History obtained from History obtained from: Patient, Family - History of Present Illness Timing - onset: How many hours ago (2-3), Today Duration: Minutes Preceding symptoms: Light headed (with some component of vertigo too). No: Headache, Abdominal pain, Nausea / vomiting Associated symptoms: Abdominal pain (mild abd cramping intermittently the past 2 weeks associated with some watery/soft diarrhea 2-3 times daily.). No: Headache, Chest pain, Dyspnea, Nausea / vomiting Injury occurred: No: Fell, Head injury Similar symptoms before: No diagnosis (she has some vertigo sympotms intermittently when first getting up in mornings and at time with doing outdoor yardwork (particularly if bending/getting up). Dx with vertigo and has done Epleys with success at times in the past. Sometimes lightheaded with getting up too.) Recently seen: Not recently seen Review of Systems Constitutional: denies: Fever, Chills Nose: denies: Rhinorrhea / runny nose, Congestion Throat: denies: Sore throat Respiratory: denies: Cough GI: reports: Abdominal Pain (intermittent cramps. No pain currently in ER.), Diarrhea. denies: Abdominal Swelling, Nausea, Vomiting, Constipation, Bloody / black stool : denies: Dysuria, Frequency Neurologic: denies: Altered mental status, Headache PD PAST MEDICAL HISTORY - Past Medical History Cardiovascular: High cholesterol Respiratory: None Endocrine/Autoimmune: None GI: GERD, Colon polyps : None HEENT: None Psych: None Musculoskeletal: None Derm: None - Past Surgical History HEENT: Tonsil/Adenoidectomy - Present Medications Home Medications: Ambulatory Orders Medication Instructions Recorded Confirmed Omeprazole 20 mg PO DAILY #90 tab 06/28/19 Loperamide [Imodium] 2 mg PO Q6H PRN #10 cap 06/26/21 Ondansetron Odt [Zofran] 4 mg TL Q6H PRN #10 tablet 06/26/21 - Allergies Allergies/Adverse Reactions: Allergies Allergy/AdvReac Type Severity Reaction Status Date / Time No Known Drug Allergies Allergy Verified 01/03/23 09:40 PD ED PE NORMAL - Vitals Vital signs reviewed: Yes - General General: Alert and oriented X 3, No acute distress, Well developed/nourished - Neck Neck: Supple, no meningeal sign, No adenopathy - Cardiac Cardiac: RRR, No murmur - Respiratory Respiratory: Clear bilaterally - Abdomen Abdomen: Normal bowel sounds, Soft, Non tender, Non distended, No organomegaly - Rectal Rectal: Deferred - Back Back: No CVA TTP - Derm Derm: Normal color, Warm and dry - Extremities Extremities: No edema, No calf tenderness / cord - Neuro Neuro: Alert and oriented X 3, No motor deficit, Normal speech Eye Opening: Spontaneous Motor: Obeys Commands Verbal: Oriented GCS Score: 15 Results - Vitals Vitals: Vital Signs - 24 hr 01/03/23 01/03/23 01/03/23 09:40 10:57 12:16 Heart Rate 83 75 Heart Rate [ 70 Sitting] Heart Rate [ 66 Standing] Heart Rate [ 72 Supine] Respiratory 16 16 Rate Blood Pressure 160/76 H 172/75 H Blood Pressure 170/92 H [Sitting] Blood Pressure 155/76 H [Standing] Blood Pressure 185/70 H [Supine] O2 Saturation 98 98 Oxygen O2 Source Room air - Labs Labs: Laboratory Tests 01/03/23 01/03/23 01/03/23 10:34 10:34 10:34 WBC 9.5 RBC 4.75 Hgb 13.4 Hct 42.3 MCV 89.1 MCH 28.2 MCHC 31.7 L RDW 14.5 Plt Count 235 MPV 10.2 Neut # (Auto) 5.8 Lymph # (Auto) 2.7 [place] # (Auto) 0.7 Eos # (Auto) 0.2 Baso # (Auto) 0.1 Absolute Nucleated RBC 0.00 Nucleated RBC % 0.0 Sodium 140 Potassium 4.1 Chloride 105 Carbon Dioxide 26 Anion Gap 9.0 BUN 21 H Creatinine 0.9 Estimated GFR (MDRD) 60 L Glucose 109 H Calcium 9.0 Magnesium 2.1 Total Bilirubin 0.6 AST 27 ALT 28 Alkaline Phosphatase 70 B-Natriuretic Peptide 71 Total Protein 7.5 Albumin 3.7 Globulin 3.8 Albumin/Globulin Ratio 1.0 Lipase 26 TSH 01/03/23 10:34 WBC RBC Hgb Hct MCV MCH MCHC RDW Plt Count MPV Neut # (Auto) Lymph # (Auto) [place] # (Auto) Eos # (Auto) Baso # (Auto) Absolute Nucleated RBC Nucleated RBC % Sodium Potassium Chloride Carbon Dioxide Anion Gap BUN Creatinine Estimated GFR (MDRD) Glucose Calcium Magnesium Total Bilirubin AST ALT Alkaline Phosphatase B-Natriuretic Peptide Total Protein Albumin Globulin Albumin/Globulin Ratio Lipase TSH 3.23 - Rads (name of study) abd/pelvic CT Relevant Findings:: Prelim report reviewed (no acute findings. diverticulosis without diverticulitis. ), EMP independent interpretation of test, See rad report PD Medical Decision Making - ED course Complexity details: considered differential (she got up from lying this morning and felt lightheaded versus dizzy and felt like might faint. Son saw her and wanted her to come get eval. Patient feeling okay here. Has had diarrhea for 2 weeks. No blood. Has some vertigo symptoms intermittently in mornings when first sits up.), d/w patient ED course: she has had vertigo/BPV with getting up in mornigns or bending over at times. Today sounded somewhat like that (She says she did have some feeling of herself spinning) but also some lightheaded/near syncope component. Evaluated for causes of near syncope with heart testing, CBC, labs and also CT scan abd - not having pain at this time now but has had some pains and 2 weeks of diarrhea. Of course she did not have to have BM here in ER, so could not get stool studies. But explained reasoning for stool studies/culture if diarrhea persists, and can bring sample to [facility]. She was sent with stool collection material. Feeling okay here without lightheaded. Seems astable/safe for discharge. Departure - Departure Disposition: 01 Home, Self Care Clinical Impression: Postural lightheadedness, Vertigo, Diarrhea, Near syncope Condition: Stable Record reviewed to determine appropriate education?: Yes Instructions: ED Near Syncope Unkn Follow-Up: Claudia Cespedes ARNP [Primary Care Provider] - Comments: Your vital signs including blood pressure, heart rate and oxygenation and heart rhythm are normal here. Your blood pressure if anything is slightly elevated on arrival. You are not having low blood pressure here anyway. Regarding the episode of lightheadedness and near fainting this morning does not have have an obvious cause. I presume a transient drop in blood pressure. This could relate to the recent diarrhea or hydration levels etc. Your blood test did not show any signs of anemia or electrolyte problems. No signs of heart failure. Stay well-hydrated. Continue with usual medications. An element of the dizzy/lightheaded that you have with getting up first thing in the mornings does also sound likely an element of vertigo which is typically from the inner ear ear. Try to get up slowly and then sat for a few minutes in the mornings to allow that element of vertigo/lightheadedness to improved before being up and around. You can do the rotation head movements if needed if it persists more than a few minutes. We did do a CT scan of your abdomen regarding the diarrhea. No signs of abnormality on the scan. In particular no diverticulitis or intestinal swelling etc. There is still the consideration of possible bacterial/infectious cause for the diarrhea. You can try Imodium [id number] 2 or 3 times daily for the next several days and see if the diarrhea continues to improve. If persistent diarrhea beyond a few more days, then obtain a sample of the diarrhea at home. He can bring it to the walk-in clinic or your primary care to have them do stool studies. In particular would be looking at the stool tests of: 1. C. difficile by PCR 2. Stool culture Discharge Date/Time: 01/03/23 13:43
[2023-01-03] MEDS ORDERED: SODIUM CHLORIDE 0.9% 1,000 ML IV STA (10:27)
[2023-01-03 10:39] LABS: BASOPHILS # (AUTO) 0.1 10^3/uL (0.0-0.1); BASOPHILS % (AUTO) 0.7 %; EOSINOPHILS # (AUTO) 0.2 10^3/uL (0.0-0.7); HCT - HEMATOCRIT 42.3 % (37.0-47.0); HGB - HEMOGLOBIN 13.4 g/dL (12.0-16.0); LYMPHOCYTES # (AUTO) 2.7 10^3/uL (1.5-3.5); MEAN CORPUSCULAR HEMOGLOBIN 28.2 pg (27.0-31.0); MEAN CORPUSCULAR HGB CONC 31.7 g/dL (32.0-36.0); MEAN CORPUSCULAR VOLUME 89.1 fL (81.0-99.0); MEAN PLATELET VOLUME 10.2 fL (7.9-10.8); MONOCYTES # (AUTO) 0.7 10^3/uL (0.0-1.0); MONOCYTES % (AUTO) 7.6 %; NEUTROPHILS # (AUTO) 5.8 10^3/uL (1.5-6.6); NEUTROPHILS % (AUTO) 61.3 %; PLT - PLATELET COUNT 235 10^3/uL (130-450); RED BLOOD COUNT 4.75 10^6/uL (4.20-5.40); RED CELL DISTRIBUTION WIDTH 14.5 % (12.0-15.0); WHITE BLOOD COUNT 9.5 x10^3/uL (4.8-10.8)
[2023-01-03] MEDS ORDERED: iohexoL-300 100 ML VIAL ONE (10:40)
[2023-01-03 10:54] LABS: ALBUMIN 3.7 g/dL (3.2-5.5); BILIRUBIN,TOTAL 0.6 mg/dL (0.2-1.0); CREATININE 0.9 mg/dL (0.4-1.0); MAGNESIUM 2.1 mg/dL (1.7-2.8); POTASSIUM 4.1 mmol/L (3.5-5.0); TOTAL PROTEIN 7.5 g/dL (6.7-8.2)
[2023-01-03 12:20] VITALS: BP 172/75
--- NOTE | 2023-01-03 12:57 | CT Report ---
PROCEDURE: ABDOMEN/PELVIS W INDICATIONS: lower abd pain for 2 weeks/ diarrhea CONTRAST: 100ml omni 300 TECHNIQUE: After the administration of intravenous contrast, 5 mm thick sections acquired from the diaphragms to the symphysis. 5 mm thick coronal and sagittal reformats were acquired. For radiation dose reducti on, the following was used: automated exposure control, adjustment of mA and/or kV according to heraclio ent size. COMPARISON: None FINDINGS: Image quality: Excellent. Lung bases and heart: Moderate hiatal hernia. Lung bases are clear. Normal heart size. Liver: There are mild diffuse hepatic steatosis. No focal liver mass. Gallbladder and biliary tree: Multiple calcified gallstones. No gallbladder wall thickening. Spleen: No splenomegaly. Pancreas: No pancreatic ductal dilation. Adrenals: No adrenal nodule. Kidneys and ureters: No hydronephrosis. No renal cystic lesion which requires follow up. No solid mas s. Bowel and peritoneum: No bowel distension. No pathologic free fluid. Normal appendix. There are diver ticulosis without evidence of diverticulitis. Lymph nodes: No central or retroperitoneal adenopathy. Vessels: No infrarenal aortic aneurysm. PELVIS Reproductive organs: Unremarkable. Bladder: No abnormal wall thickening, accounting for underdistension. Pelvic lymph nodes: No pelvic adenopathy by size criteria. Bones: No aggressive osseous abnormality. Other: No significant ventral or inguinal hernia. IMPRESSION: 1. No evidence of acute abdominal process. 2. Cholelithiasis. 3. Very diverticulosis. 4. Very mild diffuse hepatic steatosis. 5. Moderate hiatal hernia. Reviewed by: Niko Segura MD on 01/03/2023 12:56 PM PDT Approved by: Niko Segura MD on 01/03/2023 12:56 PM PDT Station ID: [id number]
[2023-01-03] MEDS ORDERED: iohexoL-300 100 ML VIAL IVP ONE (15:23)
== END 2023-01-03 13:43 | disposition home or self-care (01) ==
LOC: ED 09:35
DX: R42 Dizziness and giddiness (principal); R19.7 Diarrhea, unspecified; R55 Syncope and collapse
CPT/HCPCS: 36415; 74177; 80053; 83690; 83735; 83880; 84443; 85025; 93005; 99283; 99284; Q9967

== ENCOUNTER 2023-01-25 09:02 | Emergency (ER) | payer MEDICARE, OTHER ==
[2023-01-25 09:44] VITALS: BP 104/64
--- NOTE | 2023-02-02 07:14 | ED Physician Documentation ---
PD HPI SKIN - Stated complaint Stated Complaint: RT CHEST REDNESS/ITCHY - Chief complaint Chief Complaint: General - History obtained from History obtained from: Patient - Additional information Additional information: Patient is a 77-year-old female presenting for evaluation of a rash to the right chest wall that has been present for approximately 1 week. Patient states that she believes she may have been bit by something. She was seen at the walk-in clinic a few days ago and started on Bactrim. They did outline the area of redness and a has not spread. She denies fever. She does report itchiness to the area at times. Denies any history of blistering to the area. Denies rash elsewhere. Denies chest pain or shortness of air. Review of Systems Constitutional: denies: Fever Cardiac: denies: Chest pain / pressure Respiratory: denies: Dyspnea Skin: reports: Rash PD PAST MEDICAL HISTORY - Past Medical History Cardiovascular: High cholesterol Respiratory: None Endocrine/Autoimmune: None GI: GERD, Colon polyps : None HEENT: None Psych: None Musculoskeletal: None Derm: None - Past Surgical History HEENT: Tonsil/Adenoidectomy - Present Medications Home Medications: Ambulatory Orders Medication Instructions Recorded Confirmed Omeprazole 20 mg PO DAILY #90 tab.syd. 06/28/19 01/28/23 Diclofenac Sodium 50 mg PO DAILY 01/25/23 01/28/23 Sulfamethoxazole/Trimethoprim 1 each PO BID 01/25/23 01/28/23 [Bactrim 400-80 mg Tablet] cephALEXin [Keflex] 500 mg PO Q6H #28 cap 01/25/23 01/28/23 Gabapentin [Neurontin] 300 mg PO TID #60 cap 01/28/23 methocarbamoL [Robaxin] 500 mg PO Q6H #20 tablet 01/28/23 - Allergies Allergies/Adverse Reactions: Allergies Allergy/AdvReac Type Severity Reaction Status Date / Time No Known Drug Allergies Allergy Verified 01/28/23 08:49 - Social History Does the pt smoke?: No Smoking Status: Never smoker PD ED PE NORMAL - General General: Alert and oriented X 3, No acute distress, Well developed/nourished - HEENT HEENT: Atraumatic, Moist mucous membranes, Pharynx benign - Neck Neck: Supple, no meningeal sign - Cardiac Cardiac: RRR, No murmur - Respiratory Respiratory: No respiratory distress, Clear bilaterally - Abdomen Abdomen: Soft, Non tender - Extremities Extremities: No edema - Neuro Neuro: Normal speech PD ED PE EXPANDED - Derm SKin visual: 1 - rash (Blanching erythema, within outlined marker to area, no vesicles or fluctuance) Results - Vitals Vitals: Oxygen O2 Source Room air PD Medical Decision Making - ED course ED course: Patient presenting for evaluation of a rash to the right chest wall. Is been present for several days and patient has been started on Bactrim without any significant improvement. It was outlined at the walk-in clinic a few days ago and has not spread past that outlined. No fluctuance to suggest abscess. No vesicles. No lymphangitic spread. No fevers. We will start patient on Keflex for additional coverage. Patient counseled on importance of completing both antibiotics as well as concerning symptoms to return for. Departure - Departure Disposition: 01 Home, Self Care Clinical Impression: Cellulitis of chest wall Condition: Stable Instructions: ED Infec Skin Cellulitis Prescriptions: cephALEXin [Keflex] 500 mg PO Q6H #28 cap Comments: You appear to have a skin infection to your right chest wall. Please continue taking the Bactrim as this will help if the infection is being caused by a staph bacteria. However this antibiotic does not work well for strep infections which are often the culprit of skin infections. Therefore I am starting you on an antibiotic called cephalexin and have sent this prescription to [facility] in [place]. Please make sure to complete the course of both antibiotics. Please keep a close eye on the redness and return to the ER if it appears to be spreading past the outline or you develop fevers or swelling or any new concerns. Forms: PCP List Discharge Date/Time: 01/25/23 09:44
== END 2023-01-25 09:44 | disposition home or self-care (01) ==
LOC: ED 09:02
DX: L03.313 Cellulitis of chest wall (principal); E78.00 Pure hypercholesterolemia, unspecified
CPT/HCPCS: 99282; 99283

== ENCOUNTER 2023-01-28 08:40 | Emergency (ER) | payer MEDICARE, OTHER ==
--- NOTE | 2023-01-28 09:17 | ED Physician Documentation ---
History of Present Illness - Stated complaint Stated Complaint: Muscle spasms - Chief complaint Chief Complaint: Ext Problem - History obtained from History obtained from: Patient - Additonal information Additional information: 77-year-old female with no reported past medical history presents for evaluation of generalized muscle cramps. Patient states that for the last 3-4 weeks she has been having problems with muscle cramping and spasms and no one seems to be able to figure it out. She states that she has had diarrhea approximately 2 times per week since symptom onset. She is currently on an antibiotic for a rash on her skin. Also states that she has had fevers. Triage reports calf cramping, however patient states that all of her extremities are cramping and hurting her. Review of Systems Constitutional: reports: Fever, Chills, Myalgias Eyes: denies: Loss of vision, Decreased vision Throat: denies: Dental pain / toothache Cardiac: denies: Chest pain / pressure, Palpitations Respiratory: denies: Dyspnea, Cough, Wheezing GI: reports: Diarrhea. denies: Abdominal Pain, Nausea, Vomiting, Constipation : denies: Dysuria, Frequency, Hesitancy Musculoskeletal: reports: Other (muscle cramping) PD PAST MEDICAL HISTORY - Past Medical History Cardiovascular: High cholesterol Respiratory: None Endocrine/Autoimmune: None GI: GERD, Colon polyps : None HEENT: None Psych: None Musculoskeletal: None Derm: None - Past Surgical History HEENT: Tonsil/Adenoidectomy - Present Medications Home Medications: Ambulatory Orders Medication Instructions Recorded Confirmed Omeprazole 20 mg PO DAILY #90 tab 06/28/19 01/28/23 Diclofenac Sodium 50 mg PO DAILY 01/25/23 01/28/23 Sulfamethoxazole/Trimethoprim 1 each PO BID 01/25/23 01/28/23 [Bactrim 400-80 mg Tablet] cephALEXin [Keflex] 500 mg PO Q6H #28 cap 01/25/23 01/28/23 Gabapentin [Neurontin] 300 mg PO TID #60 cap 01/28/23 methocarbamoL [Robaxin] 500 mg PO Q6H #20 tablet 01/28/23 - Allergies Allergies/Adverse Reactions: Allergies Allergy/AdvReac Type Severity Reaction Status Date / Time No Known Drug Allergies Allergy Verified 01/28/23 08:49 - Social History Does the pt smoke?: No Smoking Status: Never smoker PD ED PE NORMAL - Vitals Vital signs reviewed: Yes - General General: Alert and oriented X 3, No acute distress, Well developed/nourished - HEENT HEENT: Atraumatic, PERRL, EOMI - Neck Neck: Supple, no meningeal sign - Cardiac Cardiac: RRR, No murmur, Strong equal pulses - Respiratory Respiratory: No respiratory distress, Clear bilaterally - Abdomen Abdomen: Soft, Non tender, Non distended - Back Back: No CVA TTP, No spinal TTP - Derm Derm: Normal color, Warm and dry - Extremities Extremities: No deformity, No tenderness to palpate, Normal ROM s pain, No edema, No calf tenderness / cord, Other (5/5 muscle strength bilaterally) - Neuro Neuro: Alert and oriented X 3, 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, No motor deficit, No sensory deficit, Normal speech - Psych Psych: Normal mood, Normal affect Results - Vitals Vitals: Vital Signs - 24 hr 01/28/23 01/28/23 01/28/23 08:50 10:21 11:00 Temperature 36.8 C Heart Rate 103 H 81 85 Respiratory 18 17 20 Rate Blood Pressure 143/68 H 158/67 H 147/62 H O2 Saturation 98 100 98 Oxygen O2 Source Room air - Labs Labs: Laboratory Tests 01/28/23 01/28/23 01/28/23 09:26 09:26 09:45 WBC 7.1 RBC 4.94 Hgb 13.9 Hct 43.7 MCV 88.5 MCH 28.1 MCHC 31.8 L RDW 14.9 Plt Count 194 MPV 10.7 Neut # (Auto) 5.4 Lymph # (Auto) 0.7 L [place] # (Auto) 0.7 Eos # (Auto) 0.3 Baso # (Auto) 0.0 Absolute Nucleated RBC 0.00 Nucleated RBC % 0.0 Sodium 133 L Potassium 5.0 H Chloride 104 Carbon Dioxide 22 Anion Gap 7.0 BUN 26 H Creatinine 1.3 Estimated GFR (MDRD) 40 L Glucose 121 H Calcium 9.3 Phosphorus 3.6 L Magnesium 1.9 Total Bilirubin 0.4 AST 38 ALT 38 Alkaline Phosphatase 83 Total Protein 7.3 Albumin 4.1 Globulin 3.2 Albumin/Globulin Ratio 1.3 Lipase 7 L Urine Color Urine Clarity Urine pH Ur Specific [place] Urine Protein Urine Glucose (UA) Urine Ketones Urine Occult Blood Urine Nitrite Urine Bilirubin Urine Urobilinogen Ur Leukocyte Esterase Ur Microscopic Review Urine Culture Comments Nasal Adenovirus (PCR) NOT DETECTED Nasal B. parapertussis DNA (PCR) NOT DETECTED Nasal Coronavir 229E PCR NOT DETECTED Nasal Coronavir HKU1 PCR NOT DETECTED Nasal Coronavir NL63 PCR NOT DETECTED Nasal Coronavir OC43 PCR NOT DETECTED Nasal Enterovir/Rhinovir PCR NOT DETECTED Nasal Influenza B PCR NOT DETECTED Nasal Influenza A PCR NOT DETECTED Nasal Parainfluen 1 PCR NOT DETECTED Nasal Parainfluen 2 PCR NOT DETECTED Nasal Parainfluen 3 PCR NOT DETECTED Nasal Parainfluen 4 PCR NOT DETECTED Nasal RSV (PCR) NOT DETECTED Nasal B.pertussis DNA PCR NOT DETECTED Nasal C.pneumoniae (PCR) NOT DETECTED Junior Human Metapneumo PCR NOT DETECTED Nasal M.pneumoniae (PCR) NOT DETECTED Nasal SARS-CoV-2 (PCR) NOT DETECTED 01/28/23 10:15 WBC RBC Hgb Hct MCV MCH MCHC RDW Plt Count MPV Neut # (Auto) Lymph # (Auto) [place] # (Auto) Eos # (Auto) Baso # (Auto) Absolute Nucleated RBC Nucleated RBC % Sodium Potassium Chloride Carbon Dioxide Anion Gap BUN Creatinine Estimated GFR (MDRD) Glucose Calcium Phosphorus Magnesium Total Bilirubin AST ALT Alkaline Phosphatase Total Protein Albumin Globulin Albumin/Globulin Ratio Lipase Urine Color YELLOW Urine Clarity CLEAR Urine pH 5.5 Ur Specific [place] 1.015 Urine Protein NEGATIVE Urine Glucose (UA) NEGATIVE Urine Ketones NEGATIVE Urine Occult Blood NEGATIVE Urine Nitrite NEGATIVE Urine Bilirubin NEGATIVE Urine Urobilinogen 0.2 (NORMAL) Ur Leukocyte Esterase NEGATIVE Ur Microscopic Review NOT INDICATED Urine Culture Comments NOT INDICATED Nasal Adenovirus (PCR) Nasal B. parapertussis DNA (PCR) Nasal Coronavir 229E PCR Nasal Coronavir HKU1 PCR Nasal Coronavir NL63 PCR Nasal Coronavir OC43 PCR Nasal Enterovir/Rhinovir PCR Nasal Influenza B PCR Nasal Influenza A PCR Nasal Parainfluen 1 PCR Nasal Parainfluen 2 PCR Nasal Parainfluen 3 PCR Nasal Parainfluen 4 PCR Nasal RSV (PCR) Nasal B.pertussis DNA PCR Nasal C.pneumoniae (PCR) Junior Human Metapneumo PCR Nasal M.pneumoniae (PCR) Nasal SARS-CoV-2 (PCR) PD Medical Decision Making - ED course Complexity details: reviewed old records, reviewed results, re-evaluated patient, considered differential, d/w patient, d/w family ED course: Well-appearing patient presenting for generalized muscle cramping. States that she has had several evaluations without cause found. No physical exam abnormality, patient resting comfortably in ED bed with intact muscle strength. Laboratory work is reviewed, electrolytes within normal limits and do not explain presence of patient's symptoms. Will trial gabapentin and robaxin for muscle pain. Patient counseled on importance of PCP follow up. Departure - Departure Disposition: 01 Home, Self Care Clinical Impression: Muscle spasm Condition: Stable Instructions: ED Spasm Muscle Prescriptions: Gabapentin [Neurontin] 300 mg PO TID #60 cap methocarbamoL [Robaxin] 500 mg PO Q6H #20 tablet Forms: PCP List Discharge Date/Time: 01/28/23 11:33
[2023-01-28 09:33] LABS: BASOPHILS % (AUTO) 0.4 %; EOSINOPHILS # (AUTO) 0.3 10^3/uL (0.0-0.7); EOSINOPHILS % (AUTO) 4.1 %; HCT - HEMATOCRIT 43.7 % (37.0-47.0); HGB - HEMOGLOBIN 13.9 g/dL (12.0-16.0); LYMPHOCYTES # (AUTO) 0.7 10^3/uL (1.5-3.5); LYMPHOCYTES % (AUTO) 9.4 %; MEAN CORPUSCULAR HEMOGLOBIN 28.1 pg (27.0-31.0); MEAN CORPUSCULAR HGB CONC 31.8 g/dL (32.0-36.0); MEAN CORPUSCULAR VOLUME 88.5 fL (81.0-99.0); MEAN PLATELET VOLUME 10.7 fL (7.9-10.8); MONOCYTES # (AUTO) 0.7 10^3/uL (0.0-1.0); MONOCYTES % (AUTO) 9.3 %; NEUTROPHILS # (AUTO) 5.4 10^3/uL (1.5-6.6); PLT - PLATELET COUNT 194 10^3/uL (130-450); RED BLOOD COUNT 4.94 10^6/uL (4.20-5.40); RED CELL DISTRIBUTION WIDTH 14.9 % (12.0-15.0); WHITE BLOOD COUNT 7.1 x10^3/uL (4.8-10.8)
[2023-01-28] MEDS: SODIUM CHLORIDE 0.9% 1,000 ML IV STA (09:44)
[2023-01-28 09:56] LABS: ALBUMIN 4.1 g/dL (3.2-5.5); MAGNESIUM 1.9 mg/dL (1.7-2.3); PHOSPHORUS 3.6 mg/dL (3.7-7.2)
[2023-01-28 10:00] LABS: ALBUMIN/GLOBULIN RATIO 1.3 (1.0-2.2); BILIRUBIN,TOTAL 0.4 mg/dL (0.2-1.0); CALCIUM 9.3 mg/dL (8.5-10.3); CREATININE 1.3 mg/dL (0.6-1.3); TOTAL PROTEIN 7.3 g/dL (6.4-8.9)
[2023-01-28 10:37] LABS: BILIRUBIN,URINE NEGATIVE (NEGATIVE); GLUCOSE, URINE (UA) NEGATIVE (NEGATIVE); KETONES,URINE (UA) NEGATIVE (NEGATIVE); LEUKOCYTE ESTERASE, URINE NEGATIVE (NEGATIVE); NITRITE,URINE NEGATIVE (NEGATIVE); OCCULT BLOOD,URINE NEGATIVE (NEGATIVE); PH,URINE 5.5 PH (5.0-7.5); PROTEIN,URINE NEGATIVE (NEGATIVE); UROBILINOGEN,URINE 0.2 (NORMAL) E.U./dL (NORMAL)
[2023-01-28 10:39] LABS: CLARITY,URINE CLEAR (CLEAR)
[2023-01-28 11:00] LABS: B. PARAPERTUSSIS- RESP PCR PAN NOT DETECTED; B. PERTUSSIS- RESP PCR PANEL NOT DETECTED; C. PNEUMONIAE- RESP PCR PANEL NOT DETECTED; CORONAVIRUS 229E-RESP PCR NOT DETECTED; CORONAVIRUS HKU1-RESP PCR NOT DETECTED; CORONAVIRUS NL63-RESP PCR NOT DETECTED; CORONAVIRUS OC43-RESP PCR NOT DETECTED; HUMAN METAPNEUMOVIRUS NOT DETECTED; INFLUENZA A- RESP PCR PANEL NOT DETECTED; INFLUENZA B - RESP PCR PANEL NOT DETECTED; M. PNEUMONIAE- RESP PCR PANEL NOT DETECTED; PARAINFLUENZA VIRUS 1 NOT DETECTED; PARAINFLUENZA VIRUS 2 NOT DETECTED; PARAINFLUENZA VIRUS 3 NOT DETECTED; PARAINFLUENZA VIRUS 4 NOT DETECTED; RHINOVIRUS/ENTEROVIRUS NOT DETECTED; RSV- RESP PCR PANEL NOT DETECTED; SARS-CoV-2 -RESP PCR PANEL NOT DETECTED
[2023-01-28] MEDS: methocarbamoL 500 MG TABLET PO STA (11:31)
[2023-01-28 11:35] VITALS: BP 147/62
== END 2023-01-28 11:33 | disposition home or self-care (01) ==
LOC: ED 08:40
DX: M62.838 Other muscle spasm (principal); Z20.822 Contact with and (suspected) exposure to COVID-19; E78.00 Pure hypercholesterolemia, unspecified
CPT/HCPCS: 36415; 80053; 81001; 81003; 83690; 83735; 84100; 85025; 87086; 87633; 93005; 99283; 99284

== ENCOUNTER 2023-02-26 08:00 | Outpatient (CLI) | payer MEDICARE, OTHER | END 2023-02-26 23:59 | disposition home or self-care (01) | LOC: LAB.S 08:00 | PROVIDERS: ATTEND Nurse Practitioner | DX: R19.7 Diarrhea, unspecified (principal) | CPT/HCPCS: 87045; 87046; 87177; 87209; 87427; 87493 ==

== ENCOUNTER 2023-05-23 10:52 | Outpatient (CLI) | payer MEDICARE, OTHER ==
--- NOTE | 2023-05-26 12:24 | Mammography Report ---
BILATERAL DIGITAL DIAGNOSTIC MAMMOGRAM 3D/2D: 05/23/2023 CLINICAL: Bilateral itchiness in nipples. Comparison is made to exams dated: 08/20/2022 mammogram, 08/28/2021 mammogram, 06/08/2019 mammogram, 01/09/2017 mammogram, and 12/21/2016 mammogram - [facility]. Both breasts are heterogeneously dense, which may obscure small masses (category c / 51-75% glandular tissue). Stable appearance of multiple bilateral circumscribed equal density masses. No significant masses, calcifications, or other findings are seen in either breast. IMPRESSION: INCOMPLETE: NEEDS ADDITIONAL IMAGING EVALUATION There is no abnormality seen in either breast to correspond with the area of clinical concern describ ed as nipple itchiness without associated skin changes or nipple discharge, however, an ultrasound is recommended for further evaluation and is scheduled to immediately follow this examination. Based on the Tyrer Cuzick model (a risk assessment model) the patients lifetime risk is 7.6% and her 10 year risk is 0.0%. According to the ACR, ACS, and NCCN guidelines, an annual breast MRI exam wilson g with mammogram is recommended if the patients lifetime risk is 20% or greater. This exam was interpreted at Station ID: [id number]. NOTE: For mammograms, a report in lay terms will be sent to the patient. Approximately 15% of breast malignancies will not be visualized mammographically. In the management of a palpable breast mass, a negative mammogram must not discourage biopsy of a clinically suspicious lesion. Electronically Signed By: Reji Bernstein M.D. aty/:05/23/2023 12:07:29 ACR BI-RADS Category 0: Incomplete 3340F PARENCHYMAL PATTERN: (D) - The breast(s) demonstrate(s) heterogeneously dense fibroglandular parenchy ma. BI-RADS CATEGORY: (0) - 0 Ultrasound [id number] Immediate follow-up LATERALITY: (B)
--- NOTE | 2023-05-26 12:25 | Ultrasound Report ---
LIMITED ULTRASOUND OF LEFT BREAST: 05/23/2023 CLINICAL: Left Nipple Itching. Comparison is made to exams dated: 08/20/2022 mammogram, 08/28/2021 mammogram, 06/08/2019 mammogram, 01/09/2017 ultrasound, and 12/21/2014 ultrasound - [facility]. Color flow ultrasound of the left breast retroareolar was performed. Peterson scale images of the real- time examination were reviewed. No significant abnormalities were seen sonographically in the left breast. IMPRESSION: NEGATIVE There is no sonographic evidence of malignancy. There is no abnormality seen in the left breast to correspond with the area of clinical concern descr ibed as nipple itchiness, however, recommend clinical follow up for persistent or worsening symptoms, or development of any clinically suspicious findings. A 1 year screening mammogram is recommended. Findings and recommendations were conveyed to the patient during today's evaluation. This exam was interpreted at Station ID: [id number]. Electronically Signed By: Reji Bernstein M.D. aty/:05/23/2023 12:21:44 Ultrasound BI-RADS: 1 Negative BI-RADS CATEGORY: (1) - 1 Mammogram [id number] 1 year screening LATERALITY: (B)
--- NOTE | 2023-05-26 12:25 | Ultrasound Report ---
LIMITED ULTRASOUND OF RIGHT BREAST: 05/23/2023 CLINICAL: Right Nipple Itching. Comparison is made to exams dated: 08/20/2022 mammogram, 08/28/2021 mammogram, and 06/08/2019 mammogram - [facility]. Color flow ultrasound of the right breast retroareolar was performed. Peterson scale images of the real- time examination were reviewed. No significant abnormalities were seen sonographically in the right breast. IMPRESSION: NEGATIVE There is no sonographic evidence of malignancy. There is no abnormality seen in the right breast to correspond with the area of clinical concern desc ribed as nipple itchiness;, however, recommend clinical follow up for persistent or worsening symptom s, or development of any clinically suspicious findings. A 1 year screening mammogram is recommended. Findings and recommendations were conveyed to the patient during today's evaluation. This exam was interpreted at Station ID: [id number]. Electronically Signed By: Reji Bernstein M.D. aty/:05/23/2023 12:22:50 Ultrasound BI-RADS: 1 Negative BI-RADS CATEGORY: (1) - 1 Mammogram [id number] 1 year screening LATERALITY: (B)
== END 2023-05-23 10:53 | disposition home or self-care (01) ==
LOC: DI 10:52
PROVIDERS: ATTEND Registered Nurse
DX: L29.8 Other pruritus (principal); R92.333 Mammographic heterogeneous density, bilateral breasts

== ENCOUNTER 2024-02-18 11:43 | Emergency (ER) | payer MEDICARE, OTHER ==
--- NOTE | 2024-02-18 12:10 | ED Physician Documentation ---
PD HPI LOWER EXT INJURY - Stated complaint Stated Complaint: RT KNEE PX - Chief complaint Chief Complaint: Trauma Ext - History obtained from History obtained from: Patient - History of Present Illness PD HPI LOW EXT INJURY LOCATION: Right, Knee Type of injury: Twist (twisting knee injury without impact per se few weeks ago, slowly iproving then twisted again few days ago and hurting more. No effusion per se.) Timing - duration: Weeks Timing - details: Abrupt onset, Still present, Waxing and waning Worsened by: Moving Associated symptoms: Other (no clicking/popping/giving out.). No: Weakness, Numbness Review of Systems Constitutional: denies: Fever, Chills Skin: denies: Rash, Lesions Neurologic: denies: Focal weakness, Numbness PD PAST MEDICAL HISTORY - Past Medical History Past Medical History: Yes Cardiovascular: High cholesterol Respiratory: None Endocrine/Autoimmune: None GI: GERD, Colon polyps WEIGHT LOSS PHYSICIAN: None : None HEENT: None Psych: None Musculoskeletal: None Derm: None - Past Surgical History Past Surgical History: Yes HEENT: Tonsil/Adenoidectomy - Present Medications Home Medications: Ambulatory Orders Medication Instructions Recorded Confirmed Omeprazole 20 mg PO DAILY #90 tab. 06/28/19 02/18/24 Diclofenac Sodium 1% Gel [Voltaren 2 gm TOP QID #50 gm 02/18/24 Gel] Meloxicam [Mobic] 7.5 mg PO BID 10 Days #20 tablet 02/18/24 - Allergies Allergies/Adverse Reactions: Allergies Allergy/AdvReac Type Severity Reaction Status Date / Time No Known Drug Allergies Allergy Verified 02/18/24 11:54 - Social History Does the pt smoke?: No Smoking Status: Never smoker Does the pt drink ETOH?: No Does the pt have substance abuse?: No - Immunizations Immunizations are current?: Yes - POLST Patient has POLST: No PD ED PE NORMAL - Vitals Vital signs reviewed: Yes - General General: Alert and oriented X 3, No acute distress, Well developed/nourished - Derm Derm: Normal color, Warm and dry - Extremities Extremities: Other (right knee with tenderness medially. No pain with cruciate testing. Collateral testing causes some pain but no notable laxity. Impaction/rotation at knee does not hurt and no noted clicks/pops. ) - Neuro Neuro: Alert and oriented X 3, No motor deficit, No sensory deficit Results - Vitals Vitals: Oxygen O2 Source Room air - Rads (name of study) right knee Relevant Findings:: Prelim report reviewed (unremarkable knee xray.), EMP independent interpretation of test PD Medical Decision Making - ED course Complexity details: considered differential (knee pain with walking after twisting injury. Consider MCL strain. Less likely meniscal. Knee brace and refer to ortho. ), d/w patient Departure - Departure Disposition: 01 Home, Self Care Clinical Impression: Knee strain Qualifiers: Encounter type: initial encounter Laterality: right Qualified Code(s): S86.911A - Strain of unspecified muscle(s) and tendon(s) at lower leg level, right leg, initial encounter Condition: Stable Record reviewed to determine appropriate education?: Yes Instructions: ED Sprain Knee Follow-Up: Claudia Cespedes ARNP [Primary Care Provider] - [facility] [Provider Group] Prescriptions: Meloxicam [Mobic] 7.5 mg PO BID 10 Days #20 tablet Diclofenac Sodium 1% Gel [Voltaren Gel] 2 gm TOP QID #50 gm Comments: Your x-ray shows some arthritic changes. No obvious fractures etc. On exam it seems more likely a strain of some of the muscles with the inflammation of one of the attachment points in the cushion (bursa pes anserinus). It does not feel like a major ligament injury such as the cruciates or collaterals and does not have the character of a cartilage/meniscal injury though that was a little more difficult to assess at times. At this point I would go with the hinged knee brace when up and around to provide torsional and lateral support for this. Use the oral and topical anti-inflammatories. Add Tylenol 500 to 650 mg 4 times daily if needed. Follow-up with your primary care or probably more targeted follow-up with orthopedics if not improved well over the next 1 to 2 weeks and resolved in most of that timeframe. I sent your prescriptions to [facility] pharmacy here in [place]. Forms: PCP List Discharge Date/Time: 02/18/24 13:47
[2024-02-18] MEDS: NAPROXEN 250 MG TABLET PO STA (13:20)
[2024-02-18] MEDS: ACETAMINOPHEN 325 MG TABLET PO STA (13:21)
[2024-02-18 13:29] VITALS: BP 130/74; O2SAT 100
--- NOTE | 2024-02-18 15:01 | XRAY Report ---
PROCEDURE: Knee 4+V RT INDICATIONS: Trauma TECHNIQUE: 3 views of the knee was obtained. COMPARISON: None FINDINGS: Bones: No fractures or dislocations. No suspicious bony lesions. Soft tissues: No knee joint effusion. No suspicious soft tissue calcifications or masses. IMPRESSION: Unremarkable knee radiographs Reviewed by: Farhan Kaur MD on 02/18/2024 2:00 PM AKDT Approved by: Farhan Kaur MD on 02/18/2024 2:00 PM AKDT Station ID: [id number]
== END 2024-02-18 13:47 | disposition home or self-care (01) ==
LOC: ED 11:43
DX: S86.911A Strain of unspecified muscle(s) and tendon(s) at lower leg level, right leg, initial encounter (principal); X50.1XXA Overexertion from prolonged static or awkward postures, initial encounter; E78.00 Pure hypercholesterolemia, unspecified; Z79.899 Other long term (current) drug therapy
CPT/HCPCS: 73564; 99283; 99284; A9270